=== PATIENT | male | born 1930 ===

== ENCOUNTER 2016-03-23 12:46 | Outpatient (RCR) | payer MEDICARE, OTHER | END 2016-04-20 | disposition home or self-care (01) | LOC: WCC 12:46 | DX: L59.8 Other specified disorders of the skin and subcutaneous tissue related to radiation (principal); W88.8XXS Exposure to other ionizing radiation, sequela; I10 Essential (primary) hypertension; Z85.9 Personal history of malignant neoplasm, unspecified; I25.10 Atherosclerotic heart disease of native coronary artery without angina pectoris; E78.5 Hyperlipidemia, unspecified | CPT/HCPCS: G0277 ×20 ==

== ENCOUNTER 2016-04-21 10:03 | Outpatient (RCR) | payer MEDICARE, OTHER | END 2016-05-18 | disposition home or self-care (01) | LOC: WCC 10:03 | DX: Z77.123 Contact with and (suspected) exposure to radon and other naturally occurring radiation (principal); L59.8 Other specified disorders of the skin and subcutaneous tissue related to radiation | CPT/HCPCS: G0277 ×16 ==

== ENCOUNTER 2016-05-19 09:30 | Outpatient (RCR) | payer MEDICARE, OTHER | END 2016-06-18 | disposition home or self-care (01) | LOC: WCC 09:30 | DX: L59.8 Other specified disorders of the skin and subcutaneous tissue related to radiation (principal); W88.8XXS Exposure to other ionizing radiation, sequela; X58.XXXD Exposure to other specified factors, subsequent encounter; I10 Essential (primary) hypertension; I25.10 Atherosclerotic heart disease of native coronary artery without angina pectoris; Z95.1 Presence of aortocoronary bypass graft; Z85.818 Personal history of malignant neoplasm of other sites of lip, oral cavity, and pharynx; E78.5 Hyperlipidemia, unspecified | CPT/HCPCS: G0277 ×8 ==